=== PATIENT | female | born 1930 | race Caucasian/White ===

== ENCOUNTER 2018-12-09 13:05 | Inpatient (IN) | payer MEDICARE, OTHER ==
[2018-12-09] MEDS ORDERED: NACL 0.9% 3 ML SYG IV (14:30)
[2018-12-09] MEDS ORDERED: NITROGLYCERIN (SL) 0.4 MG TAB SL (14:30)
[2018-12-09] MEDS ORDERED: ACETAMINOPHEN 325 MG TAB PO (14:30)
[2018-12-09 14:44] LABS: ADD MAN DIFF? NO
[2018-12-09 14:45] LABS: WHITE BLOOD COUNT 5.3 10^3/ul (4.8-10.8)
[2018-12-09 14:46] LABS: ABNORMAL IP MESSAGE 1; BASOPHILS % 0.6 % (0.0-2.0); EOSINOPHILS # 0.1 10^3/ul (0.0-0.5); EOSINOPHILS % 2.3 % (0.0-7.0); HEMATOCRIT 45.8 % (37.0-47.0); HEMOGLOBIN 14.5 g/dl (12.0-16.0); LYMPHOCYTES # 0.4 10^3/ul (0.8-2.9); LYMPHOCYTES % 8.1 % (15.0-51.0); MEAN CORPUSCULAR HGB CONC 31.7 g/dl (32.0-37.0); MEAN CORPUSCULAR VOLUME 91.6 fl (82.0-101.0); MEAN PLATELET VOLUME 10.7 fl (7.4-10.4); MONOCYTE # 0.6 10^3/ul (0.3-0.9); MONOCYTES % 11.5 % (0.0-11.0); NEUTROPHIL # 4.1 10^3/ul (1.6-7.5); NEUTROPHILS % 77.1 % (39.0-77.0); PLATELET COUNT 169 10^3/UL (140-415); RED CELL DISTRIBUTION WIDTH 15.4 % (11.5-14.5)
[2018-12-09 14:47] LABS: POSITIVE DIFF @See below
[2018-12-09 15:04] LABS: INR 2.26
[2018-12-09 15:05] LABS: PARTIAL THROMBOPLASTIN TIME 49.6 Sec (23.0-35.0)
[2018-12-09 15:12] LABS: ALANINE AMINOTRANSFERASE 24 IU/L (13-69); ALBUMIN/GLOBULIN RATIO 1.33; ALKALINE PHOSPHATASE 43 IU/L (42-121); ANION GAP 9 (5-13); ASPARTATE AMINO TRANSFERASE 23 IU/L (15-46); BILIRUBIN,INDIRECT 0.9 mg/dl (0-1.1); BILIRUBIN,TOTAL 0.9 mg/dl (0.2-1.3); BLOOD UREA NITROGEN 17 mg/dl (7-20); CALCIUM 9.4 mg/dl (8.4-10.2); CARBON DIOXIDE 27 mmol/L (21-31); CHLORIDE 105 mmol/L (97-110); CREATININE 0.94 mg/dl (0.44-1.00); GLUCOSE 108 mg/dl (70-220); POTASSIUM 3.8 mmol/L (3.5-5.1); SODIUM 141 mmol/L (135-144)
[2018-12-09 15:30] LABS: PROCALCITONIN 0.07 ng/mL (0.00-0.10)
[2018-12-09 15:57] LABS: ADD UMIC YES; UR ASCORBIC ACID 20 mg/dL (NEGATIVE); UR BILIRUBIN (Dip) NEGATIVE (NEGATIVE); UR BLOOD (Dip) 2+ mg/dL (NEGATIVE); UR CLARITY CLOUDY (CLEAR); UR COLOR YELLOW (YELLOW); UR GLUCOSE (Dip) NEGATIVE (NEGATIVE); UR KETONES (Dip) NEGATIVE (NEGATIVE); UR LEUKOCYTE ESTERASE (Dip) 3+ Leu/ul (NEGATIVE); UR NITRITE (Dip) NEGATIVE (NEGATIVE); UR RBC 2 /HPF (0-5); UR SPECIFIC GRAVITY (Dip) 1.009 (1.003-1.030); UR TOTAL PROTEIN (Dip) 1+ mg/dl (NEGATIVE); UR UROBILINOGEN (Dip) NEGATIVE (NEGATIVE); UR WBC > 182 /HPF (0-5)
[2018-12-09] MEDS: HYDROCODONE/APAP (5/325) TAB PO (15:59)
[2018-12-09] MEDS: LEVOFLOXACIN 500MG/D5W (PMX) 100 ML IVPB (16:08)
[2018-12-09 18:02] LABS: B-TYPE NATRIURETIC PEPTIDE 7890 PG/ML (0-450)
[2018-12-09] MEDS: ALBUTEROL/IPRATROPIUM (NEB) 3 ML AMP HHN (19:40)
[2018-12-09] MEDS: GABAPENTIN 400 MG CAP PO (21:42)
[2018-12-09] MEDS: ATORVASTATIN 20 MG TAB PO (21:42)
[2018-12-10] MEDS: PANTOPRAZOLE (EC) 40 MG TAB PO (06:01)
[2018-12-10 06:06] LABS: ADD MAN DIFF? NO
[2018-12-10 06:13] LABS: ABNORMAL IP MESSAGE 1; BASOPHILS % 0.7 % (0.0-2.0); EOSINOPHILS # 0.4 10^3/ul (0.0-0.5); EOSINOPHILS % 6.9 % (0.0-7.0); HEMATOCRIT 43.7 % (37.0-47.0); HEMOGLOBIN 13.6 g/dl (12.0-16.0); LYMPHOCYTES # 0.5 10^3/ul (0.8-2.9); LYMPHOCYTES % 8.2 % (15.0-51.0); MEAN CORPUSCULAR HEMOGLOBIN 28.8 pg (29.0-33.0); MEAN CORPUSCULAR HGB CONC 31.1 g/dl (32.0-37.0); MEAN CORPUSCULAR VOLUME 92.6 fl (82.0-101.0); MEAN PLATELET VOLUME 10.6 fl (7.4-10.4); MONOCYTE # 0.7 10^3/ul (0.3-0.9); MONOCYTES % 11.9 % (0.0-11.0); NEUTROPHIL # 4.3 10^3/ul (1.6-7.5); NEUTROPHILS % 71.8 % (39.0-77.0); PLATELET COUNT 168 10^3/UL (140-415); RED BLOOD COUNT 4.72 10^6/ul (4.20-5.40); RED CELL DISTRIBUTION WIDTH 15.2 % (11.5-14.5)
[2018-12-10 06:38] LABS: POSITIVE DIFF @See below
[2018-12-10 07:08] LABS: ALANINE AMINOTRANSFERASE 23 IU/L (13-69); ALBUMIN 3.6 g/dl (3.3-4.9); ALBUMIN/GLOBULIN RATIO 1.24; ALKALINE PHOSPHATASE 35 IU/L (42-121); ANION GAP 8 (5-13); ASPARTATE AMINO TRANSFERASE 23 IU/L (15-46); BILIRUBIN,INDIRECT 0.5 mg/dl (0-1.1); BILIRUBIN,TOTAL 0.5 mg/dl (0.2-1.3); BLOOD UREA NITROGEN 20 mg/dl (7-20); CARBON DIOXIDE 29 mmol/L (21-31); CHLORIDE 106 mmol/L (97-110); CREATININE 0.87 mg/dl (0.44-1.00); GLUCOSE 120 mg/dl (70-220); PHOSPHORUS 3.2 mg/dl (2.5-4.9); SODIUM 143 mmol/L (135-144); TOTAL PROTEIN 6.5 g/dl (6.1-8.1)
[2018-12-10] MEDS: ALBUTEROL/IPRATROPIUM (NEB) 3 ML AMP HHN ×3 (08:00→20:58)
[2018-12-10 08:43] LABS: HEMOGLOBIN A1C 5.9 % (0-5.9)
[2018-12-10] MEDS: RIVAROXABAN 15 MG TABLET PO (09:03)
[2018-12-10] MEDS: SERTRALINE 100 MG TAB PO (09:03)
[2018-12-10] MEDS: CELECOXIB 200 MG CAP PO (09:03)
[2018-12-10] MEDS: GABAPENTIN 400 MG CAP PO ×2 (09:03→21:06)
[2018-12-10 11:43] LABS: PROCALCITONIN 0.06 ng/mL (0.00-0.10)
[2018-12-10] MEDS: LEVOFLOXACIN 500MG/D5W (PMX) 100 ML IVPB (14:28)
[2018-12-10] MEDS: ATORVASTATIN 20 MG TAB PO (21:07)
[2018-12-11] MEDS: PANTOPRAZOLE (EC) 40 MG TAB PO (05:41)
[2018-12-11 06:19] LABS: ADD MAN DIFF? NO
[2018-12-11 06:26] LABS: WHITE BLOOD COUNT 5.6 10^3/ul (4.8-10.8)
[2018-12-11 06:26] LABS: BASOPHILS % 0.7 % (0.0-2.0); EOSINOPHILS # 0.4 10^3/ul (0.0-0.5); EOSINOPHILS % 6.6 % (0.0-7.0); HEMATOCRIT 43.2 % (37.0-47.0); HEMOGLOBIN 13.6 g/dl (12.0-16.0); LYMPHOCYTES # 0.6 10^3/ul (0.8-2.9); LYMPHOCYTES % 11.4 % (15.0-51.0); MEAN CORPUSCULAR HEMOGLOBIN 29.1 pg (29.0-33.0); MEAN CORPUSCULAR HGB CONC 31.5 g/dl (32.0-37.0); MEAN CORPUSCULAR VOLUME 92.3 fl (82.0-101.0); MEAN PLATELET VOLUME 10.7 fl (7.4-10.4); MONOCYTE # 0.5 10^3/ul (0.3-0.9); MONOCYTES % 9.6 % (0.0-11.0); NEUTROPHILS % 71.5 % (39.0-77.0); PLATELET COUNT 184 10^3/UL (140-415); RED BLOOD COUNT 4.68 10^6/ul (4.20-5.40); RED CELL DISTRIBUTION WIDTH 15.5 % (11.5-14.5)
[2018-12-11 07:28] LABS: ANION GAP 8 (5-13); BLOOD UREA NITROGEN 17 mg/dl (7-20); CALCIUM 9.1 mg/dl (8.4-10.2); CARBON DIOXIDE 27 mmol/L (21-31); CHLORIDE 109 mmol/L (97-110); CREATININE 0.72 mg/dl (0.44-1.00); GLUCOSE 159 mg/dl (70-220); POTASSIUM 3.5 mmol/L (3.5-5.1); SODIUM 144 mmol/L (135-144)
[2018-12-11] MEDS: ALBUTEROL/IPRATROPIUM (NEB) 3 ML AMP HHN ×3 (08:00→20:22)
[2018-12-11] MEDS: SERTRALINE 100 MG TAB PO (09:55)
[2018-12-11] MEDS: POTASSIUM CHLORIDE (SR) 10 MEQ TAB PO ×2 (09:55→10:54)
[2018-12-11] MEDS: CELECOXIB 200 MG CAP PO (09:55)
[2018-12-11] MEDS: RIVAROXABAN 15 MG TABLET PO (09:55)
[2018-12-11] MEDS: GABAPENTIN 400 MG CAP PO ×2 (09:55→21:00)
[2018-12-11] MEDS: MUPIROCIN 2% 22 GM OINT TOP ×2 (09:55→21:00)
[2018-12-11] MEDS: LEVOFLOXACIN 500 MG TAB PO (10:47)
[2018-12-11] MEDS: ATORVASTATIN 20 MG TAB PO (21:00)
[2018-12-12] MEDS: LORAZEPAM 2 MG INJ IV (02:01)
[2018-12-12 05:53] LABS: ADD MAN DIFF? NO
[2018-12-12 05:58] LABS: WHITE BLOOD COUNT 4.2 10^3/ul (4.8-10.8)
[2018-12-12 05:58] LABS: BASOPHILS % 0.5 % (0.0-2.0); EOSINOPHILS # 0.3 10^3/ul (0.0-0.5); EOSINOPHILS % 7.9 % (0.0-7.0); HEMATOCRIT 41.8 % (37.0-47.0); HEMOGLOBIN 13.1 g/dl (12.0-16.0); LYMPHOCYTES # 0.7 10^3/ul (0.8-2.9); LYMPHOCYTES % 16.1 % (15.0-51.0); MEAN CORPUSCULAR HEMOGLOBIN 28.7 pg (29.0-33.0); MEAN CORPUSCULAR HGB CONC 31.3 g/dl (32.0-37.0); MEAN CORPUSCULAR VOLUME 91.7 fl (82.0-101.0); MEAN PLATELET VOLUME 10.1 fl (7.4-10.4); MONOCYTE # 0.4 10^3/ul (0.3-0.9); MONOCYTES % 8.4 % (0.0-11.0); NEUTROPHIL # 2.8 10^3/ul (1.6-7.5); NEUTROPHILS % 67.1 % (39.0-77.0); PLATELET COUNT 181 10^3/UL (140-415); RED BLOOD COUNT 4.56 10^6/ul (4.20-5.40); RED CELL DISTRIBUTION WIDTH 15.2 % (11.5-14.5)
[2018-12-12] MEDS: PANTOPRAZOLE (EC) 40 MG TAB PO (06:00)
[2018-12-12] MEDS: LEVOFLOXACIN 500 MG TAB PO (06:00)
[2018-12-12 06:29] LABS: ANION GAP 7 (5-13); BLOOD UREA NITROGEN 17 mg/dl (7-20); CALCIUM 9.3 mg/dl (8.4-10.2); CARBON DIOXIDE 29 mmol/L (21-31); CHLORIDE 106 mmol/L (97-110); CREATININE 0.78 mg/dl (0.44-1.00); GLUCOSE 115 mg/dl (70-220); PHOSPHORUS 3.6 mg/dl (2.5-4.9); POTASSIUM 3.6 mmol/L (3.5-5.1); SODIUM 142 mmol/L (135-144)
[2018-12-12] MEDS: ALBUTEROL/IPRATROPIUM (NEB) 3 ML AMP HHN ×3 (07:57→22:00)
[2018-12-12] MEDS: METHYLPREDNISOLONE 40 MG INJ IV (09:30)
[2018-12-12] MEDS: CELECOXIB 200 MG CAP PO (09:30)
[2018-12-12] MEDS: GABAPENTIN 400 MG CAP PO ×2 (09:30→20:22)
[2018-12-12] MEDS: MUPIROCIN 2% 22 GM OINT TOP ×2 (09:31→20:23)
[2018-12-12] MEDS: SERTRALINE 100 MG TAB PO (09:31)
[2018-12-12] MEDS: RIVAROXABAN 15 MG TABLET PO (09:31)
[2018-12-12] MEDS: ATORVASTATIN 20 MG TAB PO (20:22)
[2018-12-13] MEDS: LEVOFLOXACIN 500 MG TAB PO (06:28)
[2018-12-13] MEDS: PANTOPRAZOLE (EC) 40 MG TAB PO (06:28)
[2018-12-13] MEDS: ALBUTEROL/IPRATROPIUM (NEB) 3 ML AMP HHN ×3 (08:08→19:29)
[2018-12-13] MEDS: GABAPENTIN 400 MG CAP PO ×2 (10:33→21:14)
[2018-12-13] MEDS: METHYLPREDNISOLONE 40 MG INJ IV (10:33)
[2018-12-13] MEDS: FUROSEMIDE 40 MG INJ IV (10:33)
[2018-12-13] MEDS: SERTRALINE 100 MG TAB PO (10:33)
[2018-12-13] MEDS: RIVAROXABAN 15 MG TABLET PO (10:34)
[2018-12-13] MEDS: MUPIROCIN 2% 22 GM OINT TOP ×2 (10:34→21:15)
[2018-12-13] MEDS: ATORVASTATIN 20 MG TAB PO (21:14)
[2018-12-13] MEDS: LORAZEPAM 2 MG INJ IV (21:16)
[2018-12-14] MEDS: PANTOPRAZOLE (EC) 40 MG TAB PO (05:09)
[2018-12-14] MEDS: LEVOFLOXACIN 500 MG TAB PO (05:09)
[2018-12-14] MEDS: FUROSEMIDE 40 MG INJ IV (05:14)
[2018-12-14 05:49] LABS: ADD MAN DIFF? NO
[2018-12-14 05:53] LABS: WHITE BLOOD COUNT 6.7 10^3/ul (4.8-10.8)
[2018-12-14 05:53] LABS: BASOPHILS % 0.1 % (0.0-2.0); EOSINOPHILS % 0.3 % (0.0-7.0); HEMATOCRIT 44.4 % (37.0-47.0); LYMPHOCYTES # 0.9 10^3/ul (0.8-2.9); LYMPHOCYTES % 12.8 % (15.0-51.0); MEAN CORPUSCULAR HEMOGLOBIN 28.4 pg (29.0-33.0); MEAN CORPUSCULAR HGB CONC 31.5 g/dl (32.0-37.0); MEAN CORPUSCULAR VOLUME 90.1 fl (82.0-101.0); MEAN PLATELET VOLUME 9.9 fl (7.4-10.4); MONOCYTE # 0.6 10^3/ul (0.3-0.9); MONOCYTES % 8.2 % (0.0-11.0); NEUTROPHIL # 5.2 10^3/ul (1.6-7.5); NEUTROPHILS % 78.3 % (39.0-77.0); PLATELET COUNT 192 10^3/UL (140-415); RED BLOOD COUNT 4.93 10^6/ul (4.20-5.40)
[2018-12-14 06:14] LABS: ALANINE AMINOTRANSFERASE 26 IU/L (13-69); ALBUMIN 3.8 g/dl (3.3-4.9); ALBUMIN/GLOBULIN RATIO 1.31; ALKALINE PHOSPHATASE 44 IU/L (42-121); ANION GAP 10 (5-13); ASPARTATE AMINO TRANSFERASE 20 IU/L (15-46); BILIRUBIN,INDIRECT 0.7 mg/dl (0-1.1); BILIRUBIN,TOTAL 0.7 mg/dl (0.2-1.3); BLOOD UREA NITROGEN 21 mg/dl (7-20); CALCIUM 9.7 mg/dl (8.4-10.2); CARBON DIOXIDE 29 mmol/L (21-31); CHLORIDE 104 mmol/L (97-110); CREATININE 0.87 mg/dl (0.44-1.00); GLUCOSE 123 mg/dl (70-220); POTASSIUM 3.9 mmol/L (3.5-5.1); SODIUM 143 mmol/L (135-144); TOTAL PROTEIN 6.7 g/dl (6.1-8.1)
[2018-12-14] MEDS: ALBUTEROL/IPRATROPIUM (NEB) 3 ML AMP HHN ×3 (07:41→20:52)
[2018-12-14] MEDS: SERTRALINE 100 MG TAB PO (08:28)
[2018-12-14] MEDS: GABAPENTIN 400 MG CAP PO ×2 (08:28→21:27)
[2018-12-14] MEDS: RIVAROXABAN 15 MG TABLET PO (08:28)
[2018-12-14] MEDS: METHYLPREDNISOLONE 40 MG INJ IV (08:57)
[2018-12-14] MEDS: MUPIROCIN 2% 22 GM OINT TOP ×2 (09:50→21:27)
[2018-12-14] MEDS: LOSARTAN 25 MG TAB PO (09:51)
[2018-12-14] MEDS: ATORVASTATIN 20 MG TAB PO (21:27)
[2018-12-15 06:33] LABS: ADD MAN DIFF? NO
[2018-12-15] MEDS: FUROSEMIDE 40 MG INJ IV (06:33)
[2018-12-15] MEDS: LEVOFLOXACIN 500 MG TAB PO (06:34)
[2018-12-15] MEDS: PANTOPRAZOLE (EC) 40 MG TAB PO (06:34)
[2018-12-15 06:36] LABS: BASOPHILS % 0.1 % (0.0-2.0); EOSINOPHILS # 0.1 10^3/ul (0.0-0.5); EOSINOPHILS % 0.7 % (0.0-7.0); HEMATOCRIT 45.7 % (37.0-47.0); HEMOGLOBIN 14.4 g/dl (12.0-16.0); LYMPHOCYTES # 1.1 10^3/ul (0.8-2.9); LYMPHOCYTES % 13.2 % (15.0-51.0); MEAN CORPUSCULAR HEMOGLOBIN 28.4 pg (29.0-33.0); MEAN CORPUSCULAR HGB CONC 31.5 g/dl (32.0-37.0); MEAN CORPUSCULAR VOLUME 90.1 fl (82.0-101.0); MEAN PLATELET VOLUME 10.5 fl (7.4-10.4); MONOCYTE # 0.7 10^3/ul (0.3-0.9); MONOCYTES % 8.8 % (0.0-11.0); NEUTROPHIL # 6.2 10^3/ul (1.6-7.5); NEUTROPHILS % 76.8 % (39.0-77.0); PLATELET COUNT 209 10^3/UL (140-415); RED BLOOD COUNT 5.07 10^6/ul (4.20-5.40); RED CELL DISTRIBUTION WIDTH 14.8 % (11.5-14.5)
[2018-12-15 06:36] LABS: WHITE BLOOD COUNT 8.1 10^3/ul (4.8-10.8)
[2018-12-15 07:03] LABS: ALANINE AMINOTRANSFERASE 23 IU/L (13-69); ALBUMIN 3.7 g/dl (3.3-4.9); ALBUMIN/GLOBULIN RATIO 1.19; ALKALINE PHOSPHATASE 43 IU/L (42-121); ANION GAP 5 (5-13); ASPARTATE AMINO TRANSFERASE 27 IU/L (15-46); BILIRUBIN,INDIRECT 0.7 mg/dl (0-1.1); BILIRUBIN,TOTAL 0.7 mg/dl (0.2-1.3); BLOOD UREA NITROGEN 23 mg/dl (7-20); CALCIUM 9.8 mg/dl (8.4-10.2); CARBON DIOXIDE 29 mmol/L (21-31); CHLORIDE 103 mmol/L (97-110); GLUCOSE 102 mg/dl (70-220); POTASSIUM 3.8 mmol/L (3.5-5.1); SODIUM 137 mmol/L (135-144); TOTAL PROTEIN 6.8 g/dl (6.1-8.1)
[2018-12-15] MEDS: RIVAROXABAN 15 MG TABLET PO (08:23)
[2018-12-15] MEDS: SERTRALINE 100 MG TAB PO (08:23)
[2018-12-15] MEDS: METHYLPREDNISOLONE 40 MG INJ IV (08:23)
[2018-12-15] MEDS: LOSARTAN 25 MG TAB PO (08:23)
[2018-12-15] MEDS: GABAPENTIN 400 MG CAP PO ×2 (08:23→21:59)
[2018-12-15] MEDS: MUPIROCIN 2% 22 GM OINT TOP ×2 (08:24→21:59)
[2018-12-15] MEDS: ALBUTEROL/IPRATROPIUM (NEB) 3 ML AMP HHN ×3 (08:38→20:24)
[2018-12-15] MEDS: ATORVASTATIN 20 MG TAB PO (21:58)
[2018-12-16 05:44] LABS: ADD MAN DIFF? NO
[2018-12-16 05:46] LABS: BASOPHILS % 0.1 % (0.0-2.0); EOSINOPHILS # 0.1 10^3/ul (0.0-0.5); EOSINOPHILS % 1.6 % (0.0-7.0); HEMATOCRIT 47.9 % (37.0-47.0); HEMOGLOBIN 15.2 g/dl (12.0-16.0); LYMPHOCYTES # 1.2 10^3/ul (0.8-2.9); LYMPHOCYTES % 15.3 % (15.0-51.0); MEAN CORPUSCULAR HEMOGLOBIN 28.6 pg (29.0-33.0); MEAN CORPUSCULAR HGB CONC 31.7 g/dl (32.0-37.0); MEAN PLATELET VOLUME 9.9 fl (7.4-10.4); MONOCYTE # 0.7 10^3/ul (0.3-0.9); MONOCYTES % 9.3 % (0.0-11.0); NEUTROPHIL # 5.8 10^3/ul (1.6-7.5); NEUTROPHILS % 73.3 % (39.0-77.0); PLATELET COUNT 230 10^3/UL (140-415); RED BLOOD COUNT 5.32 10^6/ul (4.20-5.40); RED CELL DISTRIBUTION WIDTH 14.8 % (11.5-14.5)
[2018-12-16 06:15] LABS: ALANINE AMINOTRANSFERASE 31 IU/L (13-69); ALBUMIN 3.7 g/dl (3.3-4.9); ALBUMIN/GLOBULIN RATIO 1.32; ALKALINE PHOSPHATASE 44 IU/L (42-121); ANION GAP 6 (5-13); ASPARTATE AMINO TRANSFERASE 23 IU/L (15-46); BILIRUBIN,INDIRECT 0.7 mg/dl (0-1.1); BILIRUBIN,TOTAL 0.7 mg/dl (0.2-1.3); BLOOD UREA NITROGEN 27 mg/dl (7-20); CALCIUM 10.1 mg/dl (8.4-10.2); CARBON DIOXIDE 30 mmol/L (21-31); CHLORIDE 103 mmol/L (97-110); CREATININE 0.81 mg/dl (0.44-1.00); GLUCOSE 103 mg/dl (70-220); MAGNESIUM 1.9 mg/dl (1.7-2.5); PHOSPHORUS 5.1 mg/dl (2.5-4.9); POTASSIUM 3.7 mmol/L (3.5-5.1); SODIUM 139 mmol/L (135-144); TOTAL PROTEIN 6.5 g/dl (6.1-8.1)
[2018-12-16] MEDS: PANTOPRAZOLE (EC) 40 MG TAB PO (06:36)
[2018-12-16] MEDS: LEVOFLOXACIN 500 MG TAB PO (06:36)
[2018-12-16] MEDS: FUROSEMIDE 40 MG INJ IV (06:37)
[2018-12-16] MEDS: ALBUTEROL/IPRATROPIUM (NEB) 3 ML AMP HHN ×3 (07:30→19:40)
[2018-12-16] MEDS: GABAPENTIN 400 MG CAP PO ×2 (08:45→21:21)
[2018-12-16] MEDS: SERTRALINE 100 MG TAB PO (08:45)
[2018-12-16] MEDS: RIVAROXABAN 15 MG TABLET PO (08:45)
[2018-12-16] MEDS: METHYLPREDNISOLONE 40 MG INJ IV (08:45)
[2018-12-16] MEDS: MUPIROCIN 2% 22 GM OINT TOP ×2 (08:47→21:22)
[2018-12-16] MEDS: LOSARTAN 25 MG TAB PO (08:47)
[2018-12-16] MEDS ORDERED: MAGNESIUM HYDROXIDE 30ML CUP PO (11:00)
[2018-12-16] MEDS ORDERED: BISACODYL 10 MG SUPP PR (11:00)
[2018-12-16] MEDS: POTASSIUM CHLORIDE (SR) 20 MEQ TAB PO (12:12)
[2018-12-16] MEDS: DOCUSATE SODIUM 100 MG CAP PO ×2 (12:12→21:21)
[2018-12-16 12:15] LABS: B-TYPE NATRIURETIC PEPTIDE 1900 PG/ML (0-450)
[2018-12-16] MEDS: ATORVASTATIN 20 MG TAB PO (21:21)
[2018-12-17 05:33] LABS: ADD MAN DIFF? NO
[2018-12-17 05:41] LABS: WHITE BLOOD COUNT 8.5 10^3/ul (4.8-10.8)
[2018-12-17 05:41] LABS: BASOPHILS % 0.2 % (0.0-2.0); EOSINOPHILS # 0.1 10^3/ul (0.0-0.5); EOSINOPHILS % 1.6 % (0.0-7.0); HEMOGLOBIN 15.6 g/dl (12.0-16.0); LYMPHOCYTES # 1.2 10^3/ul (0.8-2.9); LYMPHOCYTES % 14.4 % (15.0-51.0); MEAN CORPUSCULAR HEMOGLOBIN 28.3 pg (29.0-33.0); MEAN CORPUSCULAR HGB CONC 31.2 g/dl (32.0-37.0); MEAN CORPUSCULAR VOLUME 90.7 fl (82.0-101.0); MEAN PLATELET VOLUME 10.1 fl (7.4-10.4); MONOCYTE # 0.8 10^3/ul (0.3-0.9); MONOCYTES % 8.8 % (0.0-11.0); NEUTROPHIL # 6.3 10^3/ul (1.6-7.5); NEUTROPHILS % 74.4 % (39.0-77.0); PLATELET COUNT 264 10^3/UL (140-415); RED BLOOD COUNT 5.51 10^6/ul (4.20-5.40); RED CELL DISTRIBUTION WIDTH 14.6 % (11.5-14.5)
[2018-12-17 06:07] LABS: ALANINE AMINOTRANSFERASE 32 IU/L (13-69); ALBUMIN 3.8 g/dl (3.3-4.9); ALBUMIN/GLOBULIN RATIO 1.26; ALKALINE PHOSPHATASE 49 IU/L (42-121); ANION GAP 8 (5-13); ASPARTATE AMINO TRANSFERASE 29 IU/L (15-46); BILIRUBIN,INDIRECT 0.7 mg/dl (0-1.1); BILIRUBIN,TOTAL 0.7 mg/dl (0.2-1.3); BLOOD UREA NITROGEN 28 mg/dl (7-20); CALCIUM 9.7 mg/dl (8.4-10.2); CARBON DIOXIDE 30 mmol/L (21-31); CHLORIDE 103 mmol/L (97-110); CREATININE 0.81 mg/dl (0.44-1.00); GLUCOSE 112 mg/dl (70-220); POTASSIUM 3.7 mmol/L (3.5-5.1); SODIUM 141 mmol/L (135-144); TOTAL PROTEIN 6.8 g/dl (6.1-8.1)
[2018-12-17] MEDS: PANTOPRAZOLE (EC) 40 MG TAB PO (06:45)
[2018-12-17] MEDS: FUROSEMIDE 40 MG INJ IV (06:46)
[2018-12-17] MEDS: ALBUTEROL/IPRATROPIUM (NEB) 3 ML AMP HHN ×3 (08:42→19:39)
[2018-12-17] MEDS: DOCUSATE SODIUM 100 MG CAP PO ×2 (08:57→20:58)
[2018-12-17] MEDS: METHYLPREDNISOLONE 40 MG INJ IV (08:57)
[2018-12-17] MEDS: RIVAROXABAN 15 MG TABLET PO (08:57)
[2018-12-17] MEDS: SERTRALINE 100 MG TAB PO (08:57)
[2018-12-17] MEDS: GABAPENTIN 400 MG CAP PO ×2 (08:57→20:58)
[2018-12-17] MEDS: LOSARTAN 25 MG TAB PO (08:58)
[2018-12-17] MEDS: MUPIROCIN 2% 22 GM OINT TOP ×2 (08:58→20:59)
[2018-12-17] MEDS: ATORVASTATIN 20 MG TAB PO (20:58)
[2018-12-18] MEDS: PANTOPRAZOLE (EC) 40 MG TAB PO (05:31)
[2018-12-18 07:06] LABS: B-TYPE NATRIURETIC PEPTIDE 839 PG/ML (0-450)
[2018-12-18] MEDS: ALBUTEROL/IPRATROPIUM (NEB) 3 ML AMP HHN ×3 (08:00→20:54)
[2018-12-18] MEDS: SERTRALINE 100 MG TAB PO (08:34)
[2018-12-18] MEDS: GABAPENTIN 400 MG CAP PO ×2 (08:34→21:46)
[2018-12-18] MEDS: DOCUSATE SODIUM 100 MG CAP PO ×2 (08:34→21:46)
[2018-12-18] MEDS: predniSONE 20 MG TAB PO (08:35)
[2018-12-18] MEDS: FUROSEMIDE 40 MG TAB PO (08:35)
[2018-12-18] MEDS: RIVAROXABAN 15 MG TABLET PO (08:35)
[2018-12-18] MEDS: LOSARTAN 25 MG TAB PO (08:36)
[2018-12-18] MEDS: MUPIROCIN 2% 22 GM OINT TOP ×2 (08:36→21:46)
[2018-12-18] MEDS: ATORVASTATIN 20 MG TAB PO (21:46)
[2018-12-18] MEDS: LORAZEPAM 2 MG INJ IV (22:26)
[2018-12-19] MEDS: PANTOPRAZOLE (EC) 40 MG TAB PO (05:26)
[2018-12-19] MEDS: RIVAROXABAN 15 MG TABLET PO (09:00)
[2018-12-19] MEDS: ALBUTEROL/IPRATROPIUM (NEB) 3 ML AMP HHN ×3 (10:50→20:42)
[2018-12-19 10:51] LABS: ADD MAN DIFF? NO
[2018-12-19 10:56] LABS: WHITE BLOOD COUNT 9.1 10^3/ul (4.8-10.8)
[2018-12-19 10:56] LABS: BASOPHILS % 0.3 % (0.0-2.0); EOSINOPHILS # 0.2 10^3/ul (0.0-0.5); EOSINOPHILS % 2.4 % (0.0-7.0); HEMATOCRIT 52.7 % (37.0-47.0); HEMOGLOBIN 16.6 g/dl (12.0-16.0); LYMPHOCYTES # 1.6 10^3/ul (0.8-2.9); LYMPHOCYTES % 17.7 % (15.0-51.0); MEAN CORPUSCULAR HEMOGLOBIN 28.5 pg (29.0-33.0); MEAN CORPUSCULAR HGB CONC 31.5 g/dl (32.0-37.0); MEAN CORPUSCULAR VOLUME 90.4 fl (82.0-101.0); MEAN PLATELET VOLUME 9.9 fl (7.4-10.4); MONOCYTE # 0.8 10^3/ul (0.3-0.9); MONOCYTES % 8.6 % (0.0-11.0); NEUTROPHIL # 6.4 10^3/ul (1.6-7.5); NEUTROPHILS % 70.4 % (39.0-77.0); PLATELET COUNT 316 10^3/UL (140-415); RED BLOOD COUNT 5.83 10^6/ul (4.20-5.40); RED CELL DISTRIBUTION WIDTH 14.8 % (11.5-14.5)
[2018-12-19 11:12] LABS: ALANINE AMINOTRANSFERASE 37 IU/L (13-69); ALBUMIN 3.9 g/dl (3.3-4.9); ALBUMIN/GLOBULIN RATIO 1.21; ALKALINE PHOSPHATASE 46 IU/L (42-121); ANION GAP 7 (5-13); ASPARTATE AMINO TRANSFERASE 27 IU/L (15-46); BILIRUBIN,INDIRECT 0.8 mg/dl (0-1.1); BILIRUBIN,TOTAL 0.8 mg/dl (0.2-1.3); BLOOD UREA NITROGEN 28 mg/dl (7-20); CALCIUM 10.3 mg/dl (8.4-10.2); CARBON DIOXIDE 27 mmol/L (21-31); CHLORIDE 105 mmol/L (97-110); CREATININE 0.82 mg/dl (0.44-1.00); GLUCOSE 104 mg/dl (70-220); POTASSIUM 3.5 mmol/L (3.5-5.1); SODIUM 139 mmol/L (135-144); TOTAL PROTEIN 7.1 g/dl (6.1-8.1)
[2018-12-19] MEDS: DOCUSATE SODIUM 100 MG CAP PO ×2 (11:14→21:38)
[2018-12-19] MEDS: GABAPENTIN 400 MG CAP PO ×2 (11:15→21:39)
[2018-12-19] MEDS: LOSARTAN 25 MG TAB PO (11:15)
[2018-12-19] MEDS: predniSONE 20 MG TAB PO (11:15)
[2018-12-19] MEDS: FUROSEMIDE 40 MG TAB PO (11:15)
[2018-12-19] MEDS: SERTRALINE 100 MG TAB PO (11:16)
[2018-12-19] MEDS: MUPIROCIN 2% 22 GM OINT TOP ×2 (11:16→21:42)
[2018-12-19 17:34] LABS: ADD UMIC YES; UR ASCORBIC ACID NEGATIVE (NEGATIVE); UR BILIRUBIN (Dip) NEGATIVE (NEGATIVE); UR BLOOD (Dip) 1+ mg/dL (NEGATIVE); UR CLARITY CLEAR (CLEAR); UR COLOR STRAW (YELLOW); UR GLUCOSE (Dip) NEGATIVE (NEGATIVE); UR KETONES (Dip) NEGATIVE (NEGATIVE); UR LEUKOCYTE ESTERASE (Dip) NEGATIVE Leu/ul (NEGATIVE); UR NITRITE (Dip) NEGATIVE (NEGATIVE); UR RBC 22 /HPF (0-5); UR SPECIFIC GRAVITY (Dip) 1.006 (1.003-1.030); UR TOTAL PROTEIN (Dip) NEGATIVE (NEGATIVE); UR UROBILINOGEN (Dip) NEGATIVE (NEGATIVE); UR WBC 1 /HPF (0-5)
[2018-12-19] MEDS: ATORVASTATIN 20 MG TAB PO (21:39)
[2018-12-20] MEDS: CIPROFLOXACIN 250 MG TAB PO (05:54)
[2018-12-20] MEDS: PANTOPRAZOLE (EC) 40 MG TAB PO (05:55)
[2018-12-20] MEDS: ALBUTEROL/IPRATROPIUM (NEB) 3 ML AMP HHN (08:57)
[2018-12-20] MEDS: DOCUSATE SODIUM 100 MG CAP PO (09:37)
[2018-12-20] MEDS: LOSARTAN 25 MG TAB PO (09:37)
[2018-12-20] MEDS: predniSONE 20 MG TAB PO (09:38)
[2018-12-20] MEDS: FUROSEMIDE 40 MG TAB PO (09:38)
[2018-12-20] MEDS: GABAPENTIN 400 MG CAP PO (09:38)
[2018-12-20] MEDS: MUPIROCIN 2% 22 GM OINT TOP (09:38)
[2018-12-20] MEDS: SERTRALINE 100 MG TAB PO (09:38)
== END 2018-12-20 12:10 | disposition home health service (06) | DRG 190 ==
LOC: 6WM 13:05
PROVIDERS: Internal Medicine
DX: J44.0 Chronic obstructive pulmonary disease with (acute) lower respiratory infection (principal); I50.33 Acute on chronic diastolic (congestive) heart failure; N39.0 Urinary tract infection, site not specified; I25.10 Atherosclerotic heart disease of native coronary artery without angina pectoris; E78.5 Hyperlipidemia, unspecified; I48.2 Chronic atrial fibrillation; F03.90 Unspecified dementia, unspecified severity, without behavioral disturbance, psychotic disturbance, mood disturbance, and anxiety; Z87.891 Personal history of nicotine dependence; I11.0 Hypertensive heart disease with heart failure; B96.4 Proteus (mirabilis) (morganii) as the cause of diseases classified elsewhere; J20.9 Acute bronchitis, unspecified
CPT/HCPCS: 71045; 76856; 80048; 80053; 81001; 83036; 83735; 83880; 84100; 84145; 85025; 85610; 85730; 87070; 87081; 87086; 87275; 87276; 87279; 87280; 93005; 93306; 94640; 94664; 97110; 97116; 97162; 97165; 97530; G0378